=== PATIENT | female | born 1985 | race American Indian/Alaskan Native ===

== ENCOUNTER 2019-05-18 02:37 | Emergency (ER) | payer OTHER ==
--- NOTE | 2019-05-18 03:13 | XRay Report ---
CHEST 2 VIEWS INDICATION / CLINICAL INFORMATION: chest pain. COMPARISON: None available. FINDINGS: SUPPORT DEVICES: None. HEART / MEDIASTINUM: No significant abnormality. LUNGS / PLEURA: No significant pulmonary or pleural abnormality. No pneumothorax. ADDITIONAL FINDINGS: No significant additional findings. IMPRESSION: 1. No acute findings. Signer Name: Yunier Celis MD Signed: 05/18/2019 3:09 AM Workstation Name: [id number]
[2019-05-18 03:20] LABS: Basophils # (Auto) 0.1 K/mm3 (0.0-0.1); Basophils % (Auto) 0.9 % (0.0-1.8); Eosinophils # (Auto) 0.2 K/mm3 (0.0-0.4); Eosinophils % (Auto) 2.7 % (0.0-4.3); Hematocrit 39.2 % (30.3-42.9); Hemoglobin 13.4 gm/dl (10.1-14.3); Lymphocytes # (Auto) 2.8 K/mm3 (1.2-5.4); Lymphocytes % (Auto) 41.2 % (13.4-35.0); Mean Corpuscular HGB Conc 34 % (30-34); Mean Corpuscular Volume 89 fl (79-97); Monocytes # (Auto) 0.6 K/mm3 (0.0-0.8); Monocytes % (Auto) 8.1 % (0.0-7.3); Platelet Count 535 K/mm3 (140-440); Red Blood Count 4.39 M/mm3 (3.65-5.03); Red Cell Distribution Width 13.1 % (13.2-15.2)
[2019-05-18 03:41] LABS: BUN/Creatinine Ratio 22; Blood Urea Nitrogen 22 mg/dL (7-17); Calcium 9.6 mg/dL (8.4-10.2); Hemolysis Index 26
--- NOTE | 2019-05-18 05:12 | Emergency Department Report ---
ED Chest Pain HPI - General Chief Complaint: Chest Pain Stated Complaint: CHEST PAIN/HIGH BP Time Seen by Provider: 05/18/19 04:52 Source: patient Mode of arrival: Ambulatory Limitations: No Limitations - History of Present Illness Initial Comments: Ms Abbott is s 33 y/o aaf with hx of anxiety and HTN, who presents for chest pain last pm, states she started to get epigastric pain after eating pasta from local restaraunt. pain returned after taking shower and laying down, pt denies hx of gerd but does endorse belching and pressure since evening meal. There is no fever or chills no productive cough, no vomiting, mild nausea no back pain. MD Complaint: chest pain Onset/Timin -: days(s) Onset: after eating Pain Location: epigastric Pain Radiation: none Severity: moderate Severity scale (0 -10): 5 Quality: pressure Consistency: intermittent Improves With: rest Worsens With: supine, movement re: nausea. denies: vomting, diaphoresis, dyspnea, sense of impending doom Other Symptoms: acid taste in mouth, burping. denies: cough, fever, rash, leg swelling, palpitations Treatments Prior to Arrival: none - Related Data Previous Rx's Medication Instructions Recorded Last Taken Type Famotidine [Pepcid] 20 mg PO BID #30 tablet 05/18/19 Unknown Rx Naproxen 500 mg PO BID PRN #30 tablet 05/18/19 Unknown Rx hydrOXYzine HCL [Atarax] 25 mg PO BID #8 tablet 05/18/19 Unknown Rx Allergies Allergy/AdvReac Type Severity Reaction Status Date / Time No Known Allergies Allergy Unverified 05/18/19 02:39 Heart Score - HEART Score History: Slightly suspicious EKG: Normal Age: < 45 Risk factors: No known risk factors Troponin: < normal limit HEART Score: 0 ED Review of Systems ROS: Stated complaint: CHEST PAIN/HIGH BP Other details as noted in HPI Constitutional: denies: chills, fever Eyes: denies: eye pain, eye discharge, vision change ENT: denies: ear pain, throat pain Respiratory: denies: cough, shortness of breath, wheezing Cardiovascular: chest pain. denies: palpitations Endocrine: no symptoms reported Gastrointestinal: abdominal pain, nausea (epigastric pressure). denies: diarrhea, constipation, melena Genitourinary: denies: urgency, dysuria, discharge Musculoskeletal: denies: back pain, joint swelling, arthralgia Skin: denies: rash, lesions Neurological: denies: headache, weakness, numbness, paresthesias, confusion, vertigo Psychiatric: anxiety. denies: depression Hematological/Lymphatic: denies: easy bleeding, easy bruising ED Past Medical Hx - Past Medical History Previous Medical History?: Yes Hx Hypertension: Yes - Surgical History Past Surgical History?: Yes Additional Surgical History: hyster - Social History Smoking Status: Never Smoker Substance Use Type: None - Medications Home Medications: Home Medications Medication Instructions Recorded Confirmed Last Taken Type Famotidine [Pepcid] 20 mg PO BID #30 tablet 05/18/19 Unknown Rx Naproxen 500 mg PO BID PRN #30 tablet 05/18/19 Unknown Rx hydrOXYzine HCL [Atarax] 25 mg PO BID #8 tablet 05/18/19 Unknown Rx ED Physical Exam - General Limitations: No Limitations General appearance: alert, in no apparent distress - Head Head exam: Present: atraumatic, normocephalic - Eye Eye exam: Present: normal appearance, PERRL, EOMI Pupils: Present: normal accommodation - ENT ENT exam: Present: normal orophraynx, mucous membranes moist - Neck Neck exam: Present: normal inspection, full ROM. Absent: tenderness, meningismus, lymphadenopathy, thyromegaly - Respiratory Respiratory exam: Present: normal lung sounds bilaterally. Absent: respiratory distress, wheezes, stridor, chest wall tenderness - Cardiovascular Cardiovascular Exam: Present: regular rate, normal rhythm, normal heart sounds. Absent: systolic murmur, diastolic murmur, rubs, gallop - GI/Abdominal GI/Abdominal exam: Present: soft, normal bowel sounds. Absent: distended, tenderness, guarding, rebound, rigid, bruit, hernia - Rectal Rectal exam: Present: deferred - Extremities Exam Extremities exam: Present: normal inspection, full ROM, normal capillary refill. Absent: tenderness, pedal edema - Back Exam Back exam: Present: normal inspection, full ROM. Absent: tenderness, CVA tenderness (R), CVA tenderness (L), rash noted - Neurological Exam Neurological exam: Present: alert, oriented X3, CN II-XII intact, normal gait - Psychiatric Psychiatric exam: Present: normal affect, normal mood - Skin Skin exam: Present: warm, dry, intact, normal color. Absent: rash ED Course Vital Signs 05/18/19 02:41 Temperature 97.9 F Pulse Rate 89 Respiratory 16 Rate Blood Pressure 137/96 O2 Sat by Pulse 99 Oximetry JAMEL score - Jamel Score Age > 65: (0) No Aspirin use within the Past 7 Days: (0) No 3 or more CAD Risk Factors: (0) No 2 or more Angina events in past 24 hrs: (0) No Known CAD with more than 50% Stenosis: (0) No Elevated Cardiac Markers: (0) No ST Deviation Greater than 0.5mm: (0) No JAMEL Score: 0 ED Medical Decision Making - Lab Data Result diagrams: 05/18/19 03:05 05/18/19 03:05 Labs 05/18/19 05/18/19 03:05 03:05 WBC 6.8 RBC 4.39 Hgb 13.4 Hct 39.2 MCV 89 MCH 31 MCHC 34 RDW 13.1 L Plt Count 535 H Lymph % (Auto) 41.2 H Erath % (Auto) 8.1 H Eos % (Auto) 2.7 Baso % (Auto) 0.9 Lymph # 2.8 Erath # 0.6 Eos # 0.2 Baso # 0.1 Seg Neutrophils % 47.1 Seg Neutrophils # 3.2 Sodium 138 Potassium 4.1 Chloride 102.1 Carbon Dioxide 22 Anion Gap 18 BUN 22 H Creatinine 1.0 Estimated GFR > 60 BUN/Creatinine Ratio 22 Glucose 96 Calcium 9.6 Troponin T < 0.010 - EKG Data EKG shows normal: sinus rhythm, intervals, QRS complexes, ST-T waves Rate: normal - EKG Data Interpretation: normal EKG (EKG interp by ed attending, NSR, NO ST Elevated NH ) - Radiology Data Radiology results: report reviewed, image reviewed Ordering Physician: ED MD SEEMA Date of Service: 05/18/19 Procedure(s): XR chest routine 2V Accession Number(s): [id number] cc: ED MD SEEMA Fluoro Time In Minutes: CHEST 2 VIEWS INDICATION / CLINICAL INFORMATION: chest pain. COMPARISON: None available. FINDINGS: SUPPORT DEVICES: None. HEART / MEDIASTINUM: No significant abnormality. LUNGS / PLEURA: No significant pulmonary or pleural abnormality. No pneumothorax. ADDITIONAL FINDINGS: No significant additional findings. IMPRESSION: 1. No acute findings. Signer Name: Yunier Celis MD Signed: 05/18/2019 3:09 AM Workstation Name: [email or web address] Transcribed By: DT Dictated By: Aime Celis MD Electronically Authenticated By: Aime Celis MD Signed Date/Time: 05/18/19308 DD/ 7 TD/TT: - Medical Decision Making cxr: normal, ekg: normal, labs: noted Trop: <0.01, Heart Score is 0, JAMEL score is 0, plan: narproxen, pepcid, atarax, follow up with pcp in 2-3 days, pt verbalized agreement and understanding of same. Pt dc'd to home in stable condition at this. Critical care attestation.: If time is entered above; I have spent that time in minutes in the direct care of this critically ill patient, excluding procedure time. ED Disposition Clinical Impression: Stress Chest pain Qualifiers: Chest pain type: unspecified Qualified Code(s): R07.9 - Chest pain, unspecified GERD (gastroesophageal reflux disease) Qualifiers: Esophagitis presence: without esophagitis Qualified Code(s): K21.9 - Gastro- esophageal reflux disease without esophagitis Disposition: DC-01 TO HOME OR SELFCARE Is pt being admited?: No Does the pt Need Aspirin: No Condition: Stable Instructions: Chest Pain (ED), Diet for Ulcers and Gastritis (ED), Gastroesophageal Reflux Disease (ED) Prescriptions: hydrOXYzine HCL [Atarax] 25 mg PO BID #8 tablet Naproxen 500 mg PO BID PRN #30 tablet PRN Reason: pain Famotidine [Pepcid] 20 mg PO BID #30 tablet Referrals: MAGDA ARRIAGA [Other] - 3-5 Days Forms: Work/School Release Form(ED) Time of Disposition: 05:24
[2019-05-18 05:39] VITALS: BP 112/82
== END 2019-05-18 05:35 | disposition home or self-care (01) ==
LOC: ED 02:37
DX: K21.9 Gastro-esophageal reflux disease without esophagitis (principal); F43.9 Reaction to severe stress, unspecified; I10 Essential (primary) hypertension; Z79.899 Other long term (current) drug therapy
CPT/HCPCS: 36415; 71046; 80048; 84484; 84703; 85025; 93005; 93010; 99284